=== PATIENT | female | born 1990 | race Caucasian/White ===

== ENCOUNTER → 2020-08-28 | Outpatient (REF) | payer OTHER ==
[~2020-08-28] MED LIST: MOTR200T44 PO; PREN27TA3 PO; TYLE325T5 PO
[2020-08-28 18:02] LABS: HEMATOCRIT 41.3 % (36.0-47.0); HEMOGLOBIN 13.8 g/dl (12.0-15.5); MEAN CORPUSCULAR HEMOGLOBIN 29.6 pg (27.0-33.0); MEAN CORPUSCULAR HGB CONC 33.4 g/dl (32.0-36.5); MEAN CORPUSCULAR VOLUME 88.4 fl (80.0-96.0); PLATELET COUNT, AUTOMATED 274 10^3/uL (150-450); RED BLOOD COUNT 4.67 10^6/uL (4.00-5.40); WHITE BLOOD COUNT 10.1 10^3/uL (4.0-10.0)
[2020-08-28 19:34] LABS: HEMOGLOBIN A1c 4.9 %
[2020-08-28 20:03] LABS: CHLAMYDIA DNA AMPLIFICATION NEGATIVE (NEGATIVE); GC DNA AMPLIFICATION NEGATIVE (NEGATIVE)
[2020-08-28 21:51] LABS: HEPATITIS C VIRUS ABY INDEX < 0.0 INDEX (<0.8); HIV 1&2 SCREEN CENTAUR NEGATIVE (NEGATIVE)
== END ==
LOC: M PLALAB 13:55
PROVIDERS: ATTEND Advanced Practice Midwife
DX: O99.281 Endocrine, nutritional and metabolic diseases complicating pregnancy, first trimester (principal)

== ENCOUNTER → 2020-10-31 | Outpatient (CLI) | payer OTHER ==
--- NOTE | 2020-10-31 14:28 | REP ---
INDICATION: ANATOMY, CLIFFORD 03/27/21. COMPARISON: None. TECHNIQUE: Transabdominal scanning FINDINGS: Multiple ultrasonographic images of the gravid uterus shows a single living intrauterine gestation in the breech presentation. Doppler interrogation of the heart shows a heart rate of 150 beats per minute. The placenta is anterior and not low-lying. The cervix measures 4.2 cm in length and is closed. BPD: 4.3 cm 19 weeks 0 days HC: 16.2 cm 19 weeks 0 days AC: 13.7 cm 19 weeks 1 day FL: 2.9 cm 18 weeks 6 days The estimated weight is 269 g which is at the 47th percentile for a 19 week 0 day gestational age anatomical structures seen to be unremarkable are as follows: Cavum septum flu 7, cerebellum, cisterna magna, cerebral ventricles, spine, three-vessel umbilical cord, urinary bladder, and upper and lower extremities. The remainder of the anatomy was suboptimally visualized IMPRESSION: Single living intrauterine gestation as described above with an estimated gestational age of 19 weeks 0 days via composite criteria and an estimated date of delivery of 03/27/2021 by today's exam. No anomalies were detected, however, the anatomical screen is incomplete as described above. 2 week follow-up is suggested. <Electronically signed by Rohit Van > 10/31/20 [id number]
== END ==
LOC: M WHC 13:13
PROVIDERS: ATTEND Advanced Practice Midwife
DX: O99.282 Endocrine, nutritional and metabolic diseases complicating pregnancy, second trimester (principal); Z3A.19 19 weeks gestation of pregnancy

== ENCOUNTER → 2020-12-22 | Outpatient (CLI) | payer OTHER ==
[~2020-12-22] MED LIST changes: +TUMS750C5 PO
== END ==
LOC: M WHC 07:48
PROVIDERS: ATTEND Obstetrics & Gynecology
DX: Z36.89 Encounter for other specified antenatal screening (principal); Z3A.26 26 weeks gestation of pregnancy

== ENCOUNTER → 2020-12-30 | Outpatient (CLI) | payer OTHER ==
[~2020-12-30] MED LIST changes: -TUMS750C5 PO
[2020-12-30 12:49] LABS: HEMATOCRIT 38.1 % (36.0-47.0); HEMOGLOBIN 12.8 g/dl (12.0-15.5); MEAN CORPUSCULAR HEMOGLOBIN 29.3 pg (27.0-33.0); MEAN CORPUSCULAR HGB CONC 33.6 g/dl (32.0-36.5); MEAN CORPUSCULAR VOLUME 87.2 fl (80.0-96.0); PLATELET COUNT, AUTOMATED 178 10^3/uL (150-450); RED BLOOD COUNT 4.37 10^6/uL (4.00-5.40); WHITE BLOOD COUNT 8.5 10^3/uL (4.0-10.0)
[2020-12-30 15:02] LABS: GC DNA AMPLIFICATION NEGATIVE (NEGATIVE)
== END ==
LOC: M PLALAB 08:24
PROVIDERS: ATTEND Obstetrics & Gynecology
DX: Z34.82 Encounter for supervision of other normal pregnancy, second trimester (principal); Z3A.00 Weeks of gestation of pregnancy not specified

== ENCOUNTER → 2021-03-03 | Outpatient (REF) | payer OTHER | LOC: M SFHCWAGY 13:06 | PROVIDERS: ATTEND Advanced Practice Midwife | DX: Z34.83 Encounter for supervision of other normal pregnancy, third trimester (principal); Z3A.36 36 weeks gestation of pregnancy ==

== ENCOUNTER 2021-03-20 22:32 | Inpatient (IN) | payer OTHER ==
[~2021-03-20] VITALS: Ht 157.5 cm; Wt 102.1 kg
[2021-03-20 22:51] VITALS: BP 145/101
[2021-03-20 22:57] VITALS: BP 128/70
[2021-03-20] MEDS ORDERED: TUMS750C5 PO (23:11)
[2021-03-20 23:54] VITALS: BP 134/84
[2021-03-21] VITALS (7 sets, daily range): BP systolic 128–170; BP diastolic 60–92
[2021-03-21] MEDS ORDERED: LACTATED RINGER'S 1000 ML IV STA (00:37)
--- OUTSIDE RECORDS SUMMARY | 2021-03-21 00:37 | CCD ---
Author Author [facility] Organization [facility] Address Unknown Phone Unavailable Care Team Providers Care Medical Collections Name Role Phone Chriss Anguiano Unavailable PROBLEMS Type Condition ICD9-CM Code [id number] Code Onset Dates Condition S tatus W/U Status Risk SNOMED Code Notes Problem Supervision of other normal Z34.80 Ac tive confirm 852493053 Problem Hypothyroid E03.9 Active confirmed 83969843 Problem Polycystic ovarian syndrome E28.2 Active confirmed [id number] ALLERGIES No Known Allergies ENCOUNTERS from 1991 to 2021-02-19 Encounter Location Date Provider Diagnosis [facility] [address] [facility] [phone] [place] [address] Feb, Chriss Anguiano Encounter for superv ision of other normal , third trimester Z34.83 and 34 weeks gestation of Z3A.34 IMMUNIZATIONS Vaccine Route Administration Date Status DTAP-IPV 0.5mL Kinrix IM Intramuscular Jan 16, 2021 Administe red SOCIAL HISTORY Tobacco Use: Social History Observation Description Date Details (start date - stop date) Never Smoker Sex Assigned At : Social History Observation Description Sex Assigned At Unknown Domestic Violence: Question Answer Notes Status: No history of abuse Tobacco Use: Question Answer Notes Are you a: never smoker REASON FOR REFERRAL No Information VITAL SIGNS Weight 220 lbs Feb, Height 62 in Feb, BMI 40.239 kg/m2 Feb, Blood pressure systolic 122 mm Hg Feb, Blood pressure diastolic 68 mm Hg Feb, MEDICATIONS Medication SIG (Take, Route, Frequency, Duration) Notes Start Da te End Date Status Glucose Monitor - as directed O24.419 four times daily for 30 Da ys Jan, Not-Taking 27-1 MG 1 tablet Orally Once a day Active Lancets - as directed O24.419 four times daily for 30 Days Jan, Not-Taking Test Strips - as directed O24.419 four times daily for 30 Days Jan, Not-Taking Alcohol Wipes 70 % as directed O24.419 topically four times amira y for 30 Days Jan, Not-Taking PROCEDURES No Information RESULTS No Results REASON FOR VISIT 2 WK PN MEDICAL (GENERAL) HISTORY Type Description Date Medical History PCOS Hospitalization History childbirth Goals Section No Information Health Concerns No Information MEDICAL EQUIPMENT No Information MENTAL STATUS No Information FUNCTIONAL STATUS No Information ASSESSMENTS Encounter Date Diagnosis Assessment Notes Treatment Notes Treatm ent Clinical Notes Feb, Encounter for supervision of other normal , third trimester (ICD-10 - Z34.83) Feb, 34 weeks gestation of (ICD-10 - Z3A.34 ) PLAN OF TREATMENT Next Appt Details 2 Weeks Reason: Provider Name:Juliann Willis, 2021-03-03 08:00:00 AM, [address] [facility], , [place], [address], Follow Up:2 WeeksPrenatal Insurance Providers Payer Name Payer Address Payer Phone Insured Name Patient Relati onship to Insured Coverage Start Date Coverage End Date [facility] COMMUNITY PLAN [facility] [address] [facility] [phone] ANITHA MORATAYA
--- OUTSIDE RECORDS SUMMARY | 2021-03-21 00:37 | CCD ---
Author Author [facility] Organization [facility] Address Unknown Phone Unavailable Care Team Providers Care Assistant Community Director Name Role Phone Romi Philippe Unavailable PROBLEMS Type Condition ICD9-CM Code [id number] Code Onset Dates Condition S tatus W/U Status Risk SNOMED Code Notes Problem Polycystic ovarian syndrome E28.2 Active confirmed [id number] Problem Supervision of other normal Z34.80 Ac tive confirm 104561236 ALLERGIES No Known Allergies ENCOUNTERS from 1991 to 2020-12-23 Encounter Location Date Provider Diagnosis [facility] [facility] [phone] [place] [address] Nov, Romi Philippe Encounter for superv ision of normal in multigravida in second trimester Z34.82 and 22 weeks gestation of Z3A.22 IMMUNIZATIONS No Information SOCIAL HISTORY Tobacco Use: Social History Observation Description Date Details (start date - stop date) Never Smoker Sex Assigned At : Social History Observation Description Sex Assigned At Unknown Domestic Violence: Question Answer Notes Status: No history of abuse Alcohol Screening: Question Answer Notes Did you have a drink containing alcohol in the past year? No Points 0 Interpretation Negative Tobacco Use: Question Answer Notes Are you a: never smoker REASON FOR REFERRAL No Information VITAL SIGNS Weight 217.2 lbs Nov, Height 62 in Nov, BMI 39.726 kg/m2 Nov, Blood pressure systolic 124 mm Hg Nov, Blood pressure diastolic 78 mm Hg Nov, MEDICATIONS Medication SIG (Take, Route, Frequency, Duration) Notes Start Da te End Date Status 27-1 MG 1 tablet Orally Once a day Active PROCEDURES No Information RESULTS Component Value Reference Range WWBC OBS FOLLOW UP OR REPEAT Reviewed date:12/23/2020 10:49:31 Interpretation: Performing Lab:[facility],[address]], ,[place] [address] REASON FOR VISIT 4wk pn MEDICAL (GENERAL) HISTORY Type Description Date Medical History PCOS Hospitalization History childbirth Goals Section No Information Health Concerns No Information MEDICAL EQUIPMENT No Information MENTAL STATUS No Information FUNCTIONAL STATUS No Information ASSESSMENTS Encounter Date Diagnosis Assessment Notes Treatment Notes Treatm ent Clinical Notes Nov, Encounter for supervision of normal in multigravida in second trimester (ICD-10 - Z34.82) Nov, 22 weeks gestation of (ICD-10 - Z3A.22 ) PLAN OF TREATMENT Treatment Notes Test Name Order Date CBC - Complete Blood Count 2020-11-26 Type and Screen (D Rh Antibody Screen) 2020-11-26 Glucose Challenge Test 1 Hour 2020-11-26 CHLAMYDIA & GC DNA AMPLIFICAT 2020-11-26 Next Appt Details 4 Weeks Reason:PN Provider Name:Samantha Salmon, 2020-12-25 08:40:00 AM, [address] [facility], , [place], [address], Follow Up:4 WeeksPN Insurance Providers Payer Name Payer Address Payer Phone Insured Name Patient Relati onship to Insured Coverage Start Date Coverage End Date [facility] COMMUN[facility] PLAN [facility] [address] [facility] [phone] ANITHA MORATAYA self
--- OUTSIDE RECORDS SUMMARY | 2021-03-21 00:37 | CCD ---
Author Author [facility] Organization [facility] Address Unknown Phone Unavailable Care Team Providers Care Supervisor [employer] Name Role Phone Amy Morton Unavailable PROBLEMS Type Condition ICD9-CM Code AAB39-SB Code Onset Dates Condition S tatus W/U Status Risk SNOMED Code Notes Problem Supervision of other normal Z34.80 Ac tive confirm 350263613 Problem Hypothyroid E03.9 Active confirmed 16927694 Problem Polycystic ovarian syndrome E28.2 Active confirmed 801952331 ALLERGIES No Known Allergies ENCOUNTERS from 1991 to 2021-02-02 Encounter Location Date Provider Diagnosis [facility] [address] [facility] [phone] [place] [address] Jan, Amy Morton Abnormal glucose pascual erance test (GTT) during , antepartum O99.810 IMMUNIZATIONS Vaccine Route Administration Date Status DTAP-IPV [...] REASON FOR REFERRAL No Information VITAL SIGNS No information MEDICATIONS Medication SIG (Take, Route, Frequency, Duration) Notes Start Da te End Date Status Glucose Monitor - as directed O24.419 four times daily for 30 Da ys Jan, Active Alcohol Wipes 70 % as directed O24.419 topically four times amira y for 30 Days Jan, Active Lancets - as directed O24.419 four times daily for 30 Days Jan, Active 27-1 MG 1 tablet Orally Once a day Active Test Strips - as directed O24.419 four times daily for 30 Days Jan, Active PROCEDURES No Information RESULTS No Results REASON FOR VISIT rx MEDICAL (GENERAL) HISTORY Type Description Date Medical History PCOS Hospitalization History childbirth Goals Section No Information Health Concerns No Information MEDICAL EQUIPMENT No Information MENTAL STATUS No Information FUNCTIONAL STATUS No Information ASSESSMENTS Encounter Date Diagnosis Assessment Notes Treatment Notes Treatm ent Clinical Notes Jan, Abnormal glucose tolerance t est (GTT) during , antepartum (ICD-10 - O99.810) PLAN OF TREATMENT Medication Medication Name Sig Start Date Stop Date Lancets - as directed O24.419 four times daily for 30 Days Jan, Glucose Monitor - as directed O24.419 four times daily for 30 Da ys Jan, Alcohol Wipes 70 % as directed O24.419 topically four times daily for 30 Days Jan, Test Strips - as directed O24.419 four times daily for 30 Days Jan, Next Appt Details Provider Name:Chriss Anguiano, 09:00:00 AM, [address] [facility], , [place], [address], Insurance Providers Payer Name Payer Address Payer Phone Insured Name Patient Relati onship to Insured Coverage Start Date Coverage End Date [facility] PLAN [facility] [address] [facility] [phone] ANITHA MORATAYA
--- OUTSIDE RECORDS SUMMARY | 2021-03-21 00:37 | CCD ---
Author Author [facility] Organization [facility] Address Unknown Phone Unavailable Care Team Providers Care Plate Gauger Name Role Phone Amy Morton Unavailable PROBLEMS Type Condition ICD9-CM Code ESC44-IA Code Onset Dates Condition S tatus W/U Status Risk SNOMED Code Notes Problem Supervision of other normal Z34.80 Ac tive confirm 142990488 Problem Hypothyroid E03.9 Active confirmed 60328141 Problem Polycystic ovarian syndrome E28.2 Active confirmed 721526505 ALLERGIES No Known Allergies ENCOUNTERS from 1991 to 2021-02-18 Encounter Location Date Provider Diagnosis [facility] [address] [facility] [phone] [place] [address] Jan, Amy Morton 30 weeks gestation o f Z3A.30 ; Encounter for supervision of other normal in third trimester Z34.83 and Encounter for immunization Z23 IMMUNIZATIONS Vaccine Route Administration Date Status DTAP-IPV [...] FOR REFERRAL No Information VITAL SIGNS Weight 216 lbs Jan, Height 62 in Jan, BMI 39.5 kg/m2 Jan, Blood pressure systolic 138 mm Hg Jan, Blood pressure diastolic 78 mm Hg Jan, MEDICATIONS Medication SIG (Take, Route, Frequency, Duration) [...] Treatment Notes Treatm ent Clinical Notes Jan, 30 weeks gestation of (ICD-10 - Z3A.30 ) Jan, Encounter for supervision of other normal in third trimester (ICD-10 - Z34.83) Jan, Encounter for immunization (ICD-10 - Z23) PLAN OF TREATMENT Treatment Notes Test Name Order Date Imm: Boostrix 0.5mL IM TDAP 2021-01-16 Next Appt Details 2 Weeks Reason:routine Provider Name:Juliann Willis, 2021-03-03 08:00:00 AM, [address] [facility], , [place], [address], Follow Up:2 Weeksroutine Insurance Providers Payer Name Payer Address Payer Phone Insured Name Patient Relati onship to Insured Coverage Start Date Coverage End Date [facility] COMM[facility] PLAN [facility] [address] [facility] [phone] ANITHA MORATAYA self
--- OUTSIDE RECORDS SUMMARY | 2021-03-21 00:37 | CCD ---
Author Author [facility] Organization [facility] Address Unknown Phone Unavailable Care Team Providers Care Rn Pacu Name Role Phone JohanaJuliann ortega Unavailable PROBLEMS Type Condition ICD9-CM Code ZUW68-ZZ Code Onset Dates Condition S tatus W/U Status Risk SNOMED Code Notes Problem Supervision of other normal Z34.80 Ac tive confirm 242348982 Problem Hypothyroid E03.9 Active confirmed 49757509 Problem Polycystic ovarian syndrome E28.2 Active confirmed 880875520 ALLERGIES No Known Allergies ENCOUNTERS from 1991 to 2021-03-05 Encounter Location Date Provider Diagnosis [facility] [address] [facility] [phone] [place] [address] Feb, Juliann Willis Encounter for sup ervision of normal in multigravida in third trimester Z34.83 and 36 weeks gestation of Z3A.36 IMMUNIZATIONS Vaccine Route Administration Date Status DTAP-IPV [...] FOR REFERRAL No Information VITAL SIGNS Weight 225 lbs Feb, Weight-kg 102.06 kg Feb, Height 62 in Feb, BMI 41.153 kg/m2 Feb, Blood pressure systolic 122 mm Hg Feb, Blood pressure diastolic 70 mm Hg Feb, MEDICATIONS Medication SIG (Take, Route, Frequency, Duration) Notes Start Da te End Date Status Lancets - as directed O24.419 four times daily for 30 Days Jan, Not-Taking 27-1 MG 1 tablet Orally Once a day Active Test Strips - as directed O24.419 four times daily for 30 Days Jan, Not-Taking Glucose Monitor - as directed O24.419 four times daily for 30 Da ys Jan, Not-Taking Alcohol Wipes 70 % as directed O24.419 topically four times amira y for 30 Days Jan, Not-Taking PROCEDURES No Information RESULTS Component Value Reference Range GROUP B STREP CULTURE Reviewed date:03/05/2021 12:23:04 Interpretation: Performing Lab:[facility], [facility] [address] [facility] [address] , ,[place] [address] REASON FOR VISIT 2 WK PN MEDICAL (GENERAL) HISTORY Type Description Date Medical History PCOS Hospitalization History childbirth Goals Section No Information Health Concerns No Information MEDICAL EQUIPMENT No Information MENTAL STATUS No Information FUNCTIONAL STATUS No Information ASSESSMENTS Encounter Date Diagnosis Assessment Notes Treatment Notes Treatm ent Clinical Notes Feb, 36 weeks gestation of (ICD-10 - Z3A.36 ) Feb, Encounter for supervision of normal in multigravida in third trimester (ICD-10 - Z34.83) PLAN OF TREATMENT Next Appt Details 1 Week Reason:- Routine follow up Provider Name:Romi Trevon Philippe, 2021-03-11 0 8:20:00 AM, [address] [facility], , [place], [address], Follow Up:1 Week- Routine follow up Insurance Providers Payer Name Payer Address Payer Phone Insured Name Patient Relati onship to Insured Coverage Start Date Coverage End Date [facility] COMMUNITY PLAN [facility] [address] [facility] [address] ANITHA MORATAYA
--- OUTSIDE RECORDS SUMMARY | 2021-03-21 00:37 | CCD ---
Author Author [facility] Organization [facility] Address Unknown Phone Unavailable Care Team Providers Care Heavy Equipment Technician Name Role Phone Chriss Anguiano Unavailable PROBLEMS Type Condition ICD9-CM Code SVD63-AY Code Onset Dates Condition S tatus W/U Status Risk SNOMED Code Notes Problem Supervision of other normal Z34.80 Ac tive confirm 431004970 Problem Hypothyroid E03.9 Active confirmed 46770099 Problem Polycystic ovarian syndrome E28.2 Active confirmed 180788486 ALLERGIES No Known Allergies ENCOUNTERS from 1991 to 2021-01-07 Encounter Location Date Provider Diagnosis [facility] [address] [facility] [phone] [place] [address] Dec, Chriss Anguiano Endocrine, nutrition al and metabolic diseases complicating , third trimester O99.283 ; Hypothyroid E03.9 ; 27 weeks gestation of Z3A.27 and History of PCOS Z87.42 IMMUNIZATIONS No Information SOCIAL HISTORY Tobacco Use: [...] FOR REFERRAL No Information VITAL SIGNS Weight 212.8 lbs Dec, Height 62 in Dec, BMI 38.922 kg/m2 Dec, Blood pressure systolic 124 mm Hg Dec, Blood pressure diastolic 76 mm Hg Dec, MEDICATIONS Medication SIG (Take, Route, Frequency, Duration) Notes Start Da te End Date Status 27-1 MG 1 tablet Orally Once a day Active PROCEDURES No Information RESULTS No Results REASON FOR VISIT 4wk pn MEDICAL (GENERAL) HISTORY Type Description Date Medical History PCOS Hospitalization History childbirth Goals Section No Information Health Concerns No Information MEDICAL EQUIPMENT No Information MENTAL STATUS No Information FUNCTIONAL STATUS No Information ASSESSMENTS Encounter Date Diagnosis Assessment Notes Treatment Notes Treatm ent Clinical Notes Dec, Endocrine, nutritional and m etabolic diseases complicating , third trimester (ICD-10 - O99.283) Dec, Hypothyroid (ICD-10 - E03.9) Dec, 27 weeks gestation of (ICD-10 - Z3A.27 ) Dec, History of PCOS (ICD-10 - Z87.42) PLAN OF TREATMENT Next Appt Details 2 Weeks Reason:- Routine follow up Provider Name:Amy Morton, 3 09:00:00 AM, [address] [place] [address] Provider Name:Amy Morton, 2021-01- 0 09:00:00 AM, [address] [place] [address], [place] [address], [address] [place] [address] Provider Name:Chriss Anguiano, 09:00:00 AM, [address] [place] [address] Follow Up:2 Weeks- Routine follow up Insurance Providers Payer Name Payer Address Payer Phone Insured Name Patient Relati onship to Insured Coverage Start Date Coverage End Date [facility] [address] [facility] [phone] ANITHA MORATAYA self
--- OUTSIDE RECORDS SUMMARY | 2021-03-21 00:37 | CCD ---
Author Author [facility] Organization [facility] Address Unknown Phone Unavailable Care Team Providers Care Photostatic Copy Maker Name Role Phone Romi Philippe Unavailable PROBLEMS Type Condition ICD9-CM Code OZN08-CT Code Onset Dates Condition S tatus W/U Status Risk SNOMED Code Notes Problem Supervision of other normal Z34.80 Ac tive confirm 944614937 Problem Hypothyroid E03.9 Active confirmed 69158829 Problem Polycystic ovarian syndrome E28.2 Active confirmed 153888589 ALLERGIES No Known Allergies ENCOUNTERS from 1991 to 2021-03-14 Encounter Location Date Provider Diagnosis [facility] [address] [facility] [phone] [place] [address] Feb, Romi Philippe Encounter for superv ision of other normal in third trimester Z34.83 IMMUNIZATIONS Vaccine Route Administration Date Status DTAP-IPV [...] FOR REFERRAL No Information VITAL SIGNS Weight 229 lbs Feb, Weight-kg 103.87 kg Feb, Height 62 in Feb, BMI 41.885 kg/m2 Feb, Blood pressure systolic 122 mm [...] amira y for 30 Days Jan, Not-Taking Glucose Monitor - as directed O24.419 four times daily for 30 Da ys Jan, Not-Taking PROCEDURES No Information RESULTS No Results REASON FOR VISIT 1 WK PN MEDICAL (GENERAL) HISTORY Type Description Date Medical History PCOS Hospitalization History childbirth Goals Section No Information Health Concerns No Information MEDICAL EQUIPMENT No Information MENTAL STATUS No Information FUNCTIONAL STATUS No Information ASSESSMENTS Encounter Date Diagnosis Assessment Notes Treatment Notes Treatm ent Clinical Notes Feb, Encounter for supervision of other normal in third trimester (ICD-10 - Z34.83) PLAN OF TREATMENT Next Appt Details Provider Name:Samantha Salmon, 2021-03-20 09:00:00 AM, [address] [facility], , [place], [address], Insurance Providers Payer Name Payer Address Payer Phone Insured Name Patient Relati onship to Insured Coverage Start Date Coverage End Date [facility] [address] [facility] [address] ANITHA MORATAYA
--- OUTSIDE RECORDS SUMMARY | 2021-03-21 00:37 | CCD ---
Author Author [facility] Organization [facility] Address Unknown Phone Unavailable Support Name Relationship Address Phone UE Next Of Kin Unknown Unavailable VANNESA MORATAYA Next Of Kin [id number] [place] [address] [place] [address] RAFIA VANNESA [facility] [address] [place] [address] Unavailable Re-disclosure Warning The records that you are about to access may contain information from federally-assisted alcohol or drug abuse programs. If such information is present, then the following federally mandated warning applies: This information has been disclosed to you from records protected by federal confidentiality rules (42 CFR part 2). The federal rules prohibit you from making any further disclosure of this information unless further disclosure is expressly permitted by the written consent of the person to whom it pertains or as otherwise permitted by 42 CFR part 2. A general authorization for the release of medical or other information is NOT sufficient for this purpose. The Federal rules restrict any use of the information to criminally investigate or prosecute any alcohol or drug abuse patient.The records that you are about to access may contain highly sensitive health information, the redisclosure of which is protected by Article 27-F of the [facility] Public Health law. If you continue you may have access to information: Regarding HIV / AIDS; Provided by facilities licensed or operated by the [facility] Office of Mental Health; or Provided by the [facility] Office for People With Developmental Disabilities. If such information is present, then the following [facility] mandated warning applies: This information has been disclosed to you from confidential records which are protected by state law. State law prohibits you from making any further disclosure of this information without the specific written consent of the person to whom it pertains, or as otherwise permitted by law. Any unauthorized further disclosure in violation of state law may result in a fine or [place] [facility] sentence or both. A general authorization for the release of medical or other information is NOT sufficient authorization for further disc losure. Encounters Encounter Providers Location Date Indications Data Source(s ) ( ESTOB) [facility] Est OB [address] [place] [address] 03/11/2021 12:00:00 AM EDT eCW1 ([facility]) ( ESTOB) [facility] [address] [place] [address] 03/03/2021 12:00:00 AM EDT eCW1 ([facility]) ( ESTOB) [facility] Est OB [address] [place] [address] 02/16/2021 12:00:00 AM EDT eCW1 ([facility]) Unknown [address] [facility] [address] 02/02/2021 12:00:00 AM EDT eCW1 ([facility]) ( ESTOB) enter Est OB [address] [place] [address] 02/02/2021 12:00:00 AM EDT eCW1 ([facility]) ( ESTOB) enter Est OB [address] [place] [address] 01/16/2021 12:00:00 AM EDT eCW1 ([facility]) ( ESTOB) enter Est OB [address] [place] [address] 12/30/2020 12:00:00 AM EDT eCW1 ([facility]) ( ESTOB) [facility] Est OB [address] [place] [address] 11/26/2020 12:00:00 AM EDT eCW1 ([facility]) ( ESTOB) [facility] Est OB [address] [place] [address] 10/23/2020 12:00:00 AM EDT eCW1 ([facility]) (WC ESTOB) [facility] Est OB [address] [place] [address] 09/25/2020 12:00:00 AM EDT eCW1 ([facility]) Unknown [address] [facility] [address] 09/23/2020 12:00:00 AM EDT eCW1 ([facility]) [place] [address] [facility] [address] 09/16/2020 12:00:00 AM EDT eCW1 ([facility]) (WC NEWOB) [facility] New OB Visit [address] [place] [address] 08/28/2020 12:00:00 AM EDT eCW1 ([facility]) Immunizations Vaccine Date Status Description Data Source(s) DTaP-IPV 01/16/2021 09:49:00 AM EDT completed e CW1 ([facility]) DTaP-IPV 01/16/2021 09:49:00 AM EDT completed e CW1 ([facility]) DTaP-IPV 01/16/2021 09:49:00 AM EDT completed e CW1 ([facility]) DTaP-IPV 01/16/2021 09:49:00 AM EDT completed e CW1 ([facility]) DTaP-IPV 01/16/2021 09:49:00 AM EDT completed e CW1 ([facility]) DTaP-IPV 01/16/2021 09:49:00 AM EDT completed e CW1 ([facility]) Medications Medication Brand Name Start Date Product Form Dose Route Admi nistrative Instructions Pharmacy Instructions Status Indications Reaction Description Data Source(s) Alcohol Wipes 70 % UNK 02/02/2021 12:00:00 AM EDT suspended Alcohol Wipes 70 % eCW1 ([facility]) Lancets - Lancets - 02/02/2021 12:00:00 AM EDT suspended Lancets - eCW1 ([facility]) Glucose Monitor - UNK 02/02/2021 12:00:00 AM EDT suspended Glucose Monitor - eCW1 ([facility]) Lancets - Lancets - 02/02/2021 12:00:00 AM EDT suspended Lancets - eCW1 ([facility]) Alcohol Wipes 70 % UNK 02/02/2021 12:00:00 AM EDT suspended Alcohol Wipes 70 % eCW1 ([facility]) Test Strips - UNK 02/02/2021 12:00:00 AM EDT suspended Test Strips - eCW1 ([facility]) Lancets - Lancets - 02/02/2021 12:00:00 AM EDT act arnaud Lancets - eCW1 ([facility]) Alcohol Wipes 70 % UNK 02/02/2021 12:00:00 AM EDT suspended Alcohol Wipes 70 % eCW1 ([facility]) Glucose Monitor - UNK 02/02/2021 12:00:00 AM EDT suspended Glucose Monitor - eCW1 ([facility]) Test Strips - K 02/02/2021 12:00:00 AM EDT suspended Test Strips - eCW1 ([facility]) Test Strips - K 02/02/2021 12:00:00 AM EDT suspended Test Strips - eCW1 ([facility]) Alcohol Wipes 70 % UNK 02/02/2021 12:00:00 AM EDT suspended Alcohol Wipes 70 % eCW1 ([facility]) Glucose Monitor - UNK 02/02/2021 12:00:00 AM EDT suspended Glucose Monitor - eCW1 ([facility]) Glucose Monitor - K 02/02/2021 12:00:00 AM EDT active Glucose Monitor - eCW1 ([facility]) Glucose Monitor - K 02/02/2021 12:00:00 AM EDT suspended Glucose Monitor - eCW1 ([facility]) Test Strips - UNK 02/02/2021 12:00:00 AM EDT acti ve Test Strips - eCW1 ([facility]) Lancets - Lancets - 02/02/2021 12:00:00 AM EDT suspended Lancets - eCW1 ([facility]) Lancets - Lancets - 02/02/2021 12:00:00 AM EDT suspended Lancets - eCW1 ([facility]) Test Strips - UNK 02/02/2021 12:00:00 AM EDT suspended Test Strips - eCW1 ([facility]) Alcohol Wipes 70 % UNK 02/02/2021 12:00:00 AM EDT suspended Alcohol Wipes 70 % eCW1 ([facility]) Alcohol Wipes 70 % UNK 02/02/2021 12:00:00 AM EDT active Alcohol Wipes 70 % eCW1 ([facility]) Lancets - Lancets - 02/02/2021 12:00:00 AM EDT suspended Lancets - eCW1 ([facility]) Glucose Monitor - UNK 02/02/2021 12:00:00 AM EDT suspended Glucose Monitor - eCW1 ([facility]) Test Strips - UNK 02/02/2021 12:00:00 AM EDT suspended Test Strips - eCW1 ([facility]) Insurance Providers Payer name Policy type / Coverage type Policy ID Covered green party ID Covered green party's relationship to eddy Policy Eddy Plan Information [facility] Health Maintenance Organization (HMO) [id number] Self [id number] [facility] MEDICAID [id number] SP [id number] T Medicaid [facility] Part B [id number] [facility] [id number] SP [id number] [facility] [id number] SP [id number] [facility] [id number] SP [id number] [facility] [id number] SP [id number] MEDICAID [id number] SP [id number] Problems, Conditions, and Diagnoses Code Display Name Description Problem Type Effective Dates Data Source(s) E03.9 [id number] Hypothyroid Problem 12/30/2020 12:00:00 AM E DT eCW1 ([facility]) E28.2 [id number] Polycystic ovarian syndrome Problem 08/29/19 12:00:00 AM EDT eCW1 ([facility]) Z34.80 care Supervision of other normal P rachel 08/25/2020 12:00:00 AM EDT eCW1 ([facility]) Surgeries/Procedures No Information Results ID Date Data Source GROUP B STREP CULTURE 03/03/2021 12:00:00 AM EDT eCW1 ([facility]) Name Value Range Interpretation Code Description Data Lina rce(s) Supporting Document(s) GROUP B STREP CULTURE eCW1 ([facility]) ID Date Data Source WWBC OBS FOLLOW UP OR REPEAT 12/22/2020 12:00:00 AM EDT eCW1 ([facility]) Name Value Range Interpretation Code Description Data Lina rce(s) Supporting Document(s) WWBC OBS FOLLOW UP OR REPEAT e CW1 ([facility]) ID Date Data Source Type and Screen Prenatal1 08/28/2020 12:00:00 AM EDT eCW1 ([facility]) Name Value Range Interpretation Code Description Data Lina rce(s) Supporting Document(s) NEGATIVE AB SCREEN PNP1 GEL (VIS) eCW1 ([facility]) ID Date Data Source CBC - Complete Blood Count 08/28/2020 12:00:00 AM EDT eCW1 ( [facility]) Name Value Range Interpretation Code Description Data Lina rce(s) Supporting Document(s) 4.67 4.00-5.40 RED BLOOD COUNT eCW1 ([facility]) 10.1 4.0-10.0 WHITE BLOOD COUNT eCW1 ([facility]) 13.8 12.0-15.5 HEMOGLOBIN eCW1 ([facility]) 88.4 80.0-96.0 MEAN CORPUSCULAR VOLUME e CW1 ([facility]) 41.3 36.0-47.0 HEMATOCRIT eCW1 ([facility]) 33.4 32.0-36.5 MEAN CORPUSCULAR HGB CONC eCW1 ([facility]) 12.2 11.5-14.5 RED CELL DISTRIBUTION WID TH eCW1 ([facility]) 29.6 27.0-33.0 MEAN CORPUSCULAR HEMOGLOB IN eCW1 ([facility]) 274 150-450 PLATELET COUNT, AUTOMATED eCW1 ([facility]) ID Date Data Source CHLAMYDIA & GC DNA AMPLIFICAT 08/28/2020 12:00:00 AM EDT eCW 1 ([facility]) Name Value Range Interpretation Code Description Data Lina rce(s) Supporting Document(s) Chlamydia trachomatis rRNA [Presence] in Unspecified specimen by Probe and target amplification method NEGATIVE NEGATIVE CHLAMYDIA DNA AMPLIFICATION eCW1 ([facility]) ID Date Data Source [id number] 08/28/2020 12:00:00 AM EDT eCW1 ([facility]) Name Value Range Interpretation Code Description Data Lina rce(s) Supporting Document(s) HIV 1&2 ANTIBODY SCREEN eCW1 ( [facility]) ID Date Data Source SYPHILIS ANTIBODY (RPR SCREEN) 08/28/2020 12:00:00 AM EDT eC W1 ([facility]) Name Value Range Interpretation Code Description Data Lina rce(s) Supporting Document(s) NONREACTIVE NONREACTIVE SYPHILIS eCW1 ([facility]) ID Date Data Source RUBELLA IMMUNE STATUS IgG 08/28/2020 12:00:00 AM EDT eCW1 ([facility]) Name Value Range Interpretation Code Description Data Lina rce(s) Supporting Document(s) IMMUNE IMMUNE RUBELLA IgG QUALITATIVE eCW1 ( [facility]) ID Date Data Source URINE CULTURE 08/28/2020 12:00:00 AM EDT eCW1 ([facility]) Name Value Range Interpretation Code Description Data Lina rce(s) Supporting Document(s) URINE CULTURE eCW1 ([facility]) ID Date Data Source HEPATITIS C ANTIBODY INDEX 08/28/2020 12:00:00 AM EDT eCW1 ( [facility]) Name Value Range Interpretation Code Description Data Lina rce(s) Supporting Document(s) < 0.0 <0.8 HEPATITIS C VIRUS COOPER IND EX eCW1 ([facility]) ID Date Data Source [id number] 08/28/2020 12:00:00 AM EDT eCW1 ([facility]) Name Value Range Interpretation Code Description Data Lina rce(s) Supporting Document(s) Hemoglobin A1c/Hemoglobin.total in Blood 4.9 HEMOGLOBIN A1c eCW1 ([facility]) ID Date Data Source HBSAG 08/28/2020 12:00:00 AM EDT eCW1 ([facility]) Name Value Range Interpretation Code Description Data Lina rce(s) Supporting Document(s) NEGATIVE NEGATIVE HBsAg eCW1 ([facility]) Procedure Social History Code Duration Value Status Description Data Source(s ) Smoking 03/11/2021 12:00:00 AM EDT Never Smoker completed Never S moker eCW1 ([facility]) Smoking 02/26/2021 12:00:00 AM EDT Never Smoker completed Never S moker eCW1 ([facility]) Smoking 02/16/2021 12:00:00 AM EDT Never Smoker completed Never S moker eCW1 ([facility]) Smoking 02/16/2021 12:00:00 AM EDT Never Smoker completed Never S moker eCW1 ([facility]) Smoking 02/16/2021 12:00:00 AM EDT Never Smoker completed Never S moker eCW1 ([facility]) Smoking 02/02/2021 12:00:00 AM EDT Never Smoker completed Never S moker eCW1 ([facility]) Smoking 01/07/2021 12:00:00 AM EDT Never Smoker completed Never S moker eCW1 ([facility]) Smoking 11/26/2020 12:00:00 AM EDT Never Smoker completed Never S moker eCW1 ([facility]) Smoking 11/12/2020 12:00:00 AM EDT Never Smoker completed Never S moker eCW1 ([facility]) Smoking 09/25/2020 12:00:00 AM EDT Never Smoker completed Never S moker eCW1 ([facility]) Smoking 08/28/2020 12:00:00 AM EDT Never Smoker completed Never S moker eCW1 ([facility]) Smoking 08/28/2020 12:00:00 AM EDT Never Smoker completed Never S moker eCW1 ([facility]) Smoking 08/28/2020 12:00:00 AM EDT Never Smoker completed Never S moker eCW1 ([facility]) Vital Signs ID Date Data Source UNK Name Value Range Interpretation Code Description Data Source(s) Diastolic blood pressure 68 mm[Hg] 68 mm[Hg] eCW1 ([facility]) Systolic blood pressure 122 mm[Hg] 122 mm[Hg] e CW1 ([facility]) Body mass index (BMI) [Ratio] 41.885 kg/m2 41.8 85 kg/m2 W1 ([facility]) Body height 62 [in_i] 62 [in_i] eCW1 ([facility]) Body weight 103.87 kg 103.87 kg eCW1 ([facility]) Body weight 229 [lb_av] 229 [lb_av] eCW1 ([facility]) Diastolic blood pressure 70 mm[Hg] 70 mm[Hg] eCW1 ([facility]) Systolic blood pressure 122 mm[Hg] 122 mm[Hg] e CW1 ([facility]) Body mass index (BMI) [Ratio] 41.153 kg/m2 41.1 53 kg/m2 eCW1 ([facility]) Body weight 102.06 kg 102.06 kg eCW1 ([facility]) Body height 62 [in_i] 62 [in_i] eCW1 ([facility]) Body weight 225 [lb_av] 225 [lb_av] eCW1 ([facility]) Systolic blood pressure 122 mm[Hg] 122 mm[Hg] e CW1 ([facility]) Body weight 220 [lb_av] 220 [lb_av] eCW1 ([facility]) Body mass index (BMI) [Ratio] 40.239 kg/m2 40.2 39 kg/m2 eCW1 ([facility]) Body height 62 [in_i] 62 [in_i] eCW1 ([facility]) Diastolic blood pressure 68 mm[Hg] 68 mm[Hg] eCW1 ([facility]) Diastolic blood pressure 78 mm[Hg] 78 mm[Hg] eCW1 ([facility]) Systolic blood pressure 118 mm[Hg] 118 mm[Hg] e CW1 ([facility]) Body mass index (BMI) [Ratio] 40.421 kg/m2 40.4 21 kg/m2 eCW1 ([facility]) Body height 62 [in_i] 62 [in_i] eCW1 ([facility]) Body weight 221 [lb_av] 221 [lb_av] eCW1 ([facility]) Diastolic blood pressure 78 mm[Hg] 78 mm[Hg] eCW1 ([facility]) Body mass index (BMI) [Ratio] 39.5 kg/m2 39.5 k g/m2 eCW1 ([facility]) Systolic blood pressure 138 mm[Hg] 138 mm[Hg] e CW1 ([facility]) Body height 62 [in_i] 62 [in_i] eCW1 ([facility]) Body weight 216 [lb_av] 216 [lb_av] eCW1 ([facility]) Systolic blood pressure 124 mm[Hg] 124 mm[Hg] e CW1 ([facility]) Body mass index (BMI) [Ratio] 38.922 kg/m2 38.9 22 kg/m2 eCW1 ([facility]) Body height 62 [in_i] 62 [in_i] eCW1 ([facility]) Body weight 212.8 [lb_av] 212.8 [lb_av] eCW1 ([facility]) Diastolic blood pressure 76 mm[Hg] 76 mm[Hg] eCW1 ([facility]) Diastolic blood pressure 78 mm[Hg] 78 mm[Hg] eCW1 ([facility]) Systolic blood pressure 124 mm[Hg] 124 mm[Hg] e CW1 ([facility]) Body mass index (BMI) [Ratio] 39.726 kg/m2 39.7 26 kg/m2 eCW1 ([facility]) Body height 62 [in_i] 62 [in_i] eCW1 ([facility]) Body weight 217.2 [lb_av] 217.2 [lb_av] eCW1 ([facility]) Diastolic blood pressure 72 mm[Hg] 72 mm[Hg] eCW1 ([facility]) Systolic blood pressure 144 mm[Hg] 144 mm[Hg] e CW1 ([facility]) Body mass index (BMI) [Ratio] 38.19 kg/m2 38.19 kg/m2 W1 ([facility]) Body height 62 [in_i] 62 [in_i] eCW1 ([facility]) Body weight 208.8 [lb_av] 208.8 [lb_av] eCW1 ([facility]) Diastolic blood pressure 70 mm[Hg] 70 mm[Hg] eCW1 ([facility]) Systolic blood pressure 120 mm[Hg] 120 mm[Hg] e CW1 ([facility]) Body mass index (BMI) [Ratio] 36.507 kg/m2 36.5 07 kg/m2 W1 ([facility]) Body height 62 [in_i] 62 [in_i] eCW1 ([facility]) Body weight 199.6 [lb_av] 199.6 [lb_av] eCW1 ([facility]) Diastolic blood pressure 82 mm[Hg] 82 mm[Hg] eCW1 ([facility]) Systolic blood pressure 130 mm[Hg] 130 mm[Hg] e CW1 ([facility]) Body mass index (BMI) [Ratio] 35.446 kg/m2 35.4 46 kg/m2 W1 ([facility]) Body height 62 [in_i] 62 [in_i] eCW1 ([facility]) Body weight 193.8 [lb_av] 193.8 [lb_av] eCW1 ([facility]) Patient Treatment Plan of Care Planned Activity Planned Date Details Description Data Source (s) Glucose Monitor - 02/02/2021 12:00:00 AM EDT eCW1 ([facility]) Alcohol Wipes 70 % 02/02/2021 12:00:00 AM EDT eCW1 ([facility]) Lancets - 02/02/2021 12:00:00 AM EDT e CW1 ([facility]) Test Strips - 02/02/2021 12:00:00 AM EDT eCW1 ([facility])
--- OUTSIDE RECORDS SUMMARY | 2021-03-21 00:37 | CCD ---
Author Author [facility] Organization [facility] Address Unknown Phone Unavailable Care Team Providers Care Clinical Reviewer Name Role Phone Amy Morton Unavailable PROBLEMS Type Condition ICD9-CM Code [id number] Code Onset Dates Condition S tatus W/U Status Risk SNOMED Code Notes Problem Supervision of other normal Z34.80 Ac tive confirm [id number] Problem Hypothyroid E03.9 Active confirmed [id number] Problem Polycystic ovarian syndrome E28.2 Active confirmed [id number] ALLERGIES No Known Allergies ENCOUNTERS from 1991 to 2021-02-18 Encounter Location Date Provider Diagnosis [facility] [address] [facility] [phone] [place] [address] Jan, Amy Morton Abnormal glucose pascual erance test (GTT) during , antepartum O99.810 and 32 weeks gestation of Z3A.32 IMMUNIZATIONS Vaccine Route Administration Date Status DTAP-IPV [...] FOR REFERRAL No Information VITAL SIGNS Weight 221 lbs Jan, Height 62 in Jan, BMI 40.421 kg/m2 Jan, Blood pressure systolic 118 mm Hg Jan, Blood pressure diastolic 78 [...] (GTT) during , antepartum (ICD-10 - O99.810) Jan, 32 weeks gestation of (ICD-10 - Z3A.32 ) PLAN OF TREATMENT Next Appt Details Provider Name:Juliannrip Willis, 2021-03-03 08:00:00 AM, [address], , [place], [address], Insurance Providers Payer Name Payer Address Payer Phone Insured Name Patient Relati onship to Insured Coverage Start Date Coverage End Date [facility] [address] [facility] [id number] ANITHA MORATAYA
[2021-03-21] MEDS ORDERED: TRANEXAMIC ACID INJection 1,000 MG in NS 100 ML IV PRN (00:40)
[2021-03-21] MEDS ORDERED: LR 1,000 ML IV SCH ×2 (00:40→01:40)
[2021-03-21] MEDS ORDERED: OXYTOCIN DRIP 30 UNITS in IV 1 EA IV PRN ×4 (00:40)
[2021-03-21] MEDS ORDERED: LIDOCAINE 1% MDV 20ML VIAL INFIL PRN (00:40)
[2021-03-21] MEDS ORDERED: CARBOPROST TROMETHAMINE 250 MCG/ML AMP IM PRN (00:40)
[2021-03-21] MEDS ORDERED: OXYTOCIN INJ 10 UNITS/ML VIAL (J2590) IM PRN (00:40)
[2021-03-21] MEDS ORDERED: METHYLERGONOVINE MALEATE 0.2 MG/ML VIAL (J2210) IM PRN (00:40)
[2021-03-21] MEDS ORDERED: OXYTOCIN 30 UNITS IN 0.9% NaCl 500ML IV BAG (J2590) As Ordered ONE (00:41)
[2021-03-21 01:34] LABS: HEMATOCRIT 37.8 % (36.0-47.0); HEMOGLOBIN 12.4 g/dl (12.0-15.5); MEAN CORPUSCULAR HEMOGLOBIN 27.7 pg (27.0-33.0); MEAN CORPUSCULAR HGB CONC 32.8 g/dl (32.0-36.5); MEAN CORPUSCULAR VOLUME 84.6 fl (80.0-96.0); PLATELET COUNT, AUTOMATED 224 10^3/uL (150-450); RED BLOOD COUNT 4.47 10^6/uL (4.00-5.40); WHITE BLOOD COUNT 11.8 10^3/uL (4.0-10.0)
[2021-03-21] MEDS ORDERED: DOCUSATE SODIUM 100MG CAPSULE PO PRN (01:40)
[2021-03-21] MEDS ORDERED: RHOGAM 300 MCG (1500 IU) INJ (J2790) IM SCH (01:40)
[2021-03-21] MEDS ORDERED: ACETAMINOPHEN 500 MG TAB PO PRN (01:40)
[2021-03-21] MEDS ORDERED: ACETAMINOPHEN TAB 650MG DOSE (2X325MG) PO PRN (01:40)
[2021-03-21] MEDS ORDERED: IBUPROFEN 600MG TAB PO PRN (01:40)
[2021-03-21] MEDS ORDERED: OXYTOCIN DRIP 30 UNITS in IV 1 EA IV SCH (01:40)
[2021-03-21] MEDS ORDERED: DIBUCAINE 1% OINTMENT 30GM TOP PRN (01:40)
[2021-03-21] MEDS ORDERED: MEASLES,MUMPS,RUBELLA VACCINE INJ (MMR-II) (90707) SC SCH (01:40)
[2021-03-21] MEDS ORDERED: METHYLERGONOVINE MALEATE 0.2 MG TAB PO PRN (01:40)
--- NOTE | 2021-03-21 08:49 | HPE ---
HISTORY AND PHYSICAL DATE OF ADMISSION: 03/21/2021 HISTORY OF PRESENT ILLNESS: Florencio is a 30-year-old 2, para 1-0-0-1, at 39 1/7 weeks gestation with EDC of 03/27/2021, based on first trimester ultrasound. She presented to labor and deliver today with report of onset of uncomfortable contractions a couple of hours ago and some bloody show. Denies leakage of fluid. The fetus has been active. [facility] care [facility] in the first trimester. course complicated by polycystic ovarian syndrome not treated with medications. OBSTETRIC HISTORY: On 04/07/2015 a 40 weeks gestation 6 pound 14 ounce female via vaginal delivery with no complications. OBSTETRIC LABORATORY DATA: A positive. Antibody screen negative. Syphilis negative. Gonorrhea and chlamydia negative. Hepatitis B negative. Hepatitis C negative. HIV negative. Rubella immune. Gestational diabetic screening 130. Urine culture no growth. GBS negative. PAST MEDICAL HISTORY: 1. Polycystic ovarian syndrome. 2. Childhood varicella. PAST SURGICAL HISTORY: None. FAMILY HISTORY: Hypertension, polycystic ovarian syndrome. SOCIAL HISTORY: The patient is . Her is not at bedside as he is home caring for their other child. She is a nonsmoker. She denies alcohol or drug use. No history of any sexually transmitted infections. She denies history of abuse physical, sexual, and emotional. ALLERGIES: No known drug allergies. CURRENT MEDICATIONS: vitamin. PHYSICAL EXAMINATION: VITAL SIGNS: Temperature 98.8, pulse 110, respirations 18, BP 128/70. heart rate is 140, moderate variability, positive accelerations, negative decelerations. Contractions are every 2-4 minutes. PELVIC: Sterile vaginal exam per Maddie WHITE, 6 cm dilated, 100% effaced, -1 station, intact membranes, and bloody show. Her abdomen is gravid, cephalic presentation with an estimated weight of 6.5 pounds. ASSESSMENT: Intrauterine at 39 1/7 weeks. heart rate category one active labor. PLAN: Admit the patient to labor and delivery. Routine laboratories. IV fluid bolus. The patient is requesting an epidural for her labor coping. Risks, benefits, and alternatives have been reviewed. She has been verbally consented for emergency surgery and blood products if they are necessary. I do anticipate continued labor progress and a spontaneous vaginal delivery.
[2021-03-21] MEDS: IBUPROFEN 800 MG TAB PO PRN (09:32)
[2021-03-21] MEDS: PRENATAL VITAMINS CHEWABLE TABLET PO SCH (09:32)
[2021-03-22 06:00] VITALS: BP 127/78
[2021-03-22] MEDS: PRENATAL VITAMINS CHEWABLE TABLET PO SCH (08:04)
--- NOTE | 2021-03-22 11:40 | IPNPDOC ---
Progress Note Date of Service: Mar 22, 2021 Day#: 1 Progress Note SUBJECT: Status post . She has been ambulating, voiding spontaneously witho ut issue and tolerating regular diet. Lochia decreasing/minimal. Pain is well- controlled. Denies headache, visual changes, right upper quadrant pain, shortness breath or chest pain. OBJECTIVE: VITAL SIGNS: Within normal limits, afebrile. Alert and oriented times three. Abdomen: Fundus firm at U-2. Soft, NTTP. ASSESSMENT: Status post uncomplicated spontaneous vaginal delivery. Vitals within normal limits, afebrile, hemodynamically stable with no evidence of infection. PLAN: Discharge to home later today. Tylenol and Motrin for pain. Routine instructions/precautions reviewed. Routine PP visit in 6 weeks in clinic. VS, I&O, 24H, Fishbone Vital Signs/I&O Vital Signs Date Time Temp Pulse Resp B/P (MAP) Pulse Ox O2 Delivery O2 Flow Rate FiO2 03/22/21 06:00 97.8 85 20 127/78 (94) 98 Room Air REMI WING DO Mar 22, 2021 11:40
[2021-03-22] MEDS: IBUPROFEN 800 MG TAB PO PRN (17:33)
== END 2021-03-22 17:55 | disposition home or self-care (01) | DRG 560 ==
LOC: M LDO 22:32 → M LDI 03-21 00:28 → M OBS 03-21 02:41
PROVIDERS: ADMIT Advanced Practice Midwife; ATTEND Advanced Practice Midwife
PROC: 10E0XZZ Delivery of Products of Conception, External Approach (ICD-10-PCS; principal; 2021-03-21)
PROC: 10907ZC Drainage of Amniotic Fluid, Therapeutic from Products of Conception, Via Natural or Artificial Opening (ICD-10-PCS; 2021-03-21)
PROC: 0HQ9XZZ Repair Perineum Skin, External Approach (ICD-10-PCS; 2021-03-21)
DX: O69.81X0 Labor and delivery complicated by cord around neck, without compression, not applicable or unspecified (principal); Z3A.39 39 weeks gestation of pregnancy; Z37.0 Single live birth; O70.0 First degree perineal laceration during delivery

== ENCOUNTER → 2021-10-05 | Outpatient (CLI) | payer OTHER ==
[~2021-10-05] MED LIST changes: +MULT1TAB16 PO; +TUMS750C5 PO
== END ==
LOC: M LABSMTC 09:50
PROVIDERS: ATTEND Anesthesiology
DX: Z01.818 Encounter for other preprocedural examination (principal); Z11.52 Encounter for screening for COVID-19

== ENCOUNTER 2021-10-09 08:10 | Day surgery (SDC) | payer OTHER ==
[~2021-10-09] VITALS: Ht 157.5 cm; Wt 86.1 kg
[2021-10-09] MEDS ORDERED: INSULIN LISPRO (NovoLOG) PER UNIT SC PRN ×2 (08:20→11:25)
[2021-10-09] MEDS ORDERED: LR 1,000 ML IV SCH ×2 (08:20→11:25)
[2021-10-09 09:13] LABS: HEMATOCRIT 41.9 % (36.0-47.0); HEMOGLOBIN 13.7 g/dl (12.0-15.5); MEAN CORPUSCULAR HEMOGLOBIN 28.7 pg (27.0-33.0); MEAN CORPUSCULAR HGB CONC 32.7 g/dl (32.0-36.5); MEAN CORPUSCULAR VOLUME 87.7 fl (80.0-96.0); PLATELET COUNT, AUTOMATED 237 10^3/uL (150-450); RED BLOOD COUNT 4.78 10^6/uL (4.00-5.40); WHITE BLOOD COUNT 4.8 10^3/uL (4.0-10.0)
[2021-10-09 09:17] LABS: HCG, SERUM QUALITATIVE NEGATIVE (NEGATIVE)
[2021-10-09] MEDS ORDERED: BUPIVACAINE HCL 0.25% 10ML VIAL As Ordered ONE (09:54)
[2021-10-09] MEDS ORDERED: SILVER NITRATE APPLICATOR (1 = QTY 10) As Ordered ONE (09:54)
[2021-10-09] MEDS ORDERED: MIDAZOLAM INJ 2MG/2ML VIAL (J2250 PER 1MG) As Ordered ONE (10:21)
[2021-10-09] MEDS ORDERED: fentaNYL 100 MCG/2 ML INJECTION As Ordered ONE ×2 (10:21→10:30)
[2021-10-09] MEDS ORDERED: dexameTHASONE 4 MG/ML 1ML VIAL (J1100 PER 1MG) As Ordered ONE (10:26)
[2021-10-09] MEDS ORDERED: ACETAMINOPHEN 1000MG 100ML IV BTL (OFIRMEV) (J0131 PER 10MG) As Ordered ONE (10:28)
[2021-10-09] MEDS ORDERED: ONDANSETRON 4MG/2ML VIAL As Ordered ONE (10:28)
[2021-10-09] MEDS ORDERED: propofoL 200 MG/20 ML VIAL As Ordered ONE (10:29)
[2021-10-09] MEDS ORDERED: LIDOCAINE 2% 100MG/5ML SDV (FOR ANES.) As Ordered ONE (10:29)
[2021-10-09] MEDS ORDERED: ROCURONIUM BROMIDE 50 MG/5 ML VIAL As Ordered ONE (10:29)
[2021-10-09] MEDS ORDERED: SUGAMMADEX SODIUM 500 MG/5 ML VIAL (BRIDION) As Ordered ONE (10:40)
[2021-10-09] MEDS ORDERED: KETOROLAC 60MG 2ML VIAL As Ordered ONE (10:41)
[2021-10-09] MEDS ORDERED: GLYCOPYRROLATE INJ 0.2 MG/ML 2 ML VIAL As Ordered ONE (10:49)
[2021-10-09] MEDS ORDERED: PERC5TAB12 PO (11:13)
[2021-10-09] MEDS ORDERED: IBUP1TAB7 PO (11:14)
[2021-10-09] MEDS ORDERED: COLA100C5 PO (11:15)
[2021-10-09] MEDS ORDERED: METOCLOPRAMIDE INJ 10MG/2ML VIAL (J2765 PER 1) IV PRN (11:25)
[2021-10-09] MEDS ORDERED: oxyCODONE 5MG TAB PO PRN (11:25)
[2021-10-09] MEDS ORDERED: MEPERIDINE INJ 25 MG/ML VIAL (J2175) IV PRN (11:25)
[2021-10-09] MEDS ORDERED: HYDROMORPHONE HCL 0.5 MG/ 0.5 ML SYRINGE (J1170 PER 1) IV PRN (11:25)
[2021-10-09] MEDS ORDERED: fentaNYL 100 MCG/2 ML INJECTION IV PRN (11:25)
[2021-10-09] MEDS ORDERED: ONDANSETRON 4MG/2ML VIAL IV PRN (11:25)
[2021-10-09 12:30] VITALS: BP 128/90
== END 2021-10-09 13:05 | disposition home or self-care (01) ==
LOC: M SDC 08:10
PROVIDERS: ATTEND Obstetrics & Gynecology
DX: Z30.2 Encounter for sterilization (principal); Z79.899 Other long term (current) drug therapy; Z87.891 Personal history of nicotine dependence
CPT/HCPCS: 36415; 58661; 84703; 85027; 86850; 88302; J0131; J1100; J1885; J2250; J2405; J3010